=== PATIENT | male | born 1960 | race African-American/Black ===

== ENCOUNTER 2018-11-19 12:43 | Emergency (ER) | payer OTHER ==
[~2018-11-19] VITALS: Ht 190.5 cm; Wt 74.8 kg
[~2018-11-19 12:43] MED LIST: FUROSEMIDE20 M1 ORAL
--- NOTE | 2018-11-19 13:15 | NUR ---
ED Nurse Note: pt brought in by [facility] from home c/c chest pain x 4 days, pt states he hasn't been able to take his medication because he couldn't get it refilled. denies n/v/d. noted pt increase work of breathing, tachypnea, LS=rhonchi at the bases. 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
--- NOTE | 2018-11-19 13:20 | NUR ---
ED Nurse Note: called lab for blood draw.
[2018-11-19 13:26] VITALS: BP 131/96
--- NOTE | 2018-11-19 13:33 | NUR ---
ED Nurse Note: lab at the bedside for blood draw.
--- NOTE | 2018-11-19 14:03 | NUR ---
ED Nurse Note: Right 20g midline inserted by tech, secured with dressing, pt tolerated well. site intact and patent.
[2018-11-19 14:17] LABS: BASOPHILS % (AUTO) 1.2 % (0.0-2.0); EOSINOPHILS % (AUTO) 4.1 % (0.0-3.0); HEMATOCRIT 38.4 % (42.0-52.0); HEMOGLOBIN 12.1 G/DL (14.2-18.0); LYMPHOCYTES % (AUTO) 21.9 % (20.0-45.0); MEAN CORPUSCULAR VOLUME 91 FL (80-99); MONOCYTES % (AUTO) 9.9 % (1.0-10.0); NEUTROPHILS % (AUTO) 62.9 % (45.0-75.0); PLATELET COUNT 129 K/UL (150-450); RED BLOOD COUNT 4.22 M/UL (4.70-6.10); RED CELL DISTRIBUTION WIDTH 15.2 % (11.6-14.8); WHITE BLOOD COUNT 5.1 K/UL (4.8-10.8)
[2018-11-19 14:26] VITALS: BP 140/105
[2018-11-19 14:26] LABS: ANION GAP 12 mmol/L (5-15); BLOOD UREA NITROGEN 30 mg/dL (7-18); CALCIUM 9.1 MG/DL (8.5-10.1); CARBON DIOXIDE 20 MMOL/L (21-32); CHLORIDE 109 MMOL/L (98-107); CREATININE 1.4 MG/DL (0.55-1.30); POTASSIUM 3.7 MMOL/L (3.5-5.1); SODIUM 140 MMOL/L (136-145)
[2018-11-19] MEDS ORDERED: ASPIRIN-LOW81 MG ORAL (14:35)
[2018-11-19] MEDS ORDERED: NAPROXEN250 M1 PO (14:35)
[2018-11-19] MEDS ORDERED: COREG6.25 MG ORAL (14:35)
[2018-11-19] MEDS ORDERED: ATORVASTATIN CA20 MG ORAL (14:35)
[2018-11-19] MEDS ORDERED: LISINOPRIL5 MG ORAL (14:35)
[2018-11-19] MEDS ORDERED: FUROSEMIDE40 MG ORAL (14:35)
[2018-11-19 14:41] LABS: ALANINE AMINOTRANSFERASE 38 U/L (12-78); ALBUMIN 3.9 G/DL (3.4-5.0); ALBUMIN/GLOBULIN RATIO 0.7 (1.0-2.7); ALKALINE PHOSPHATASE 121 U/L (46-116); ASPARTATE AMINO TRANSFERASE 73 U/L (15-37); BILIRUBIN,TOTAL 1.5 MG/DL (0.2-1.0); CREATINE KINASE 263 U/L (26-308)
[2018-11-19 14:42] LABS: BILIRUBIN,DIRECT 0.6 MG/DL (0.0-0.3)
--- NOTE | 2018-11-19 15:00 | NUR ---
ED Nurse Note: pt resting at this time, vss, nsr on plant protection guard, extra warm blanket provided for comfort, will cont monitor.
--- NOTE | 2018-11-19 15:01 | Emergency Room Report ---
History of Present Illness General Chief Complaint: Chest Pain Source: EMS (Sedrick Barrientos MD) Present Illness HPI 58-year-old male presents ED for evaluation. Brought in by EMS. Complaining of chest pain and shortness of breath. Started today. Pain is midsternal, sharp, 8 out of 10, nonradiating. Comes and goes. Denies chest pain at this time. States he does feel short of breath. History of CHF. Took his Lasix today but did not help. Denies alcohol or drug use. No other aggravating relieving factors. Denies any other associated symptoms (Sedrick Barrientos MD) Allergies: Coded Allergies: No Known Allergies (Unverified , 11/19/18) Patient History Past Medical History: HTN, CHF, seizures Past Surgical History: none Pertinent Family History: none Social History: Denies: smoking, alcohol use, drug use Immunizations: UTD Reviewed Nursing Documentation: PMH: Agreed; PSxH: Agreed (Sedrick Barrientos MD) Nursing Documentation-PMH Hx Cardiac Problems: Yes Hx Hypertension: Yes Hx Seizures: Yes (Sedrick Barrientos MD) Review of Systems All Other Systems: negative except mentioned in HPI (Sedrick Barrientos MD) Physical Exam Vital Signs Date Time Temp Pulse Resp B/P (MAP) Pulse Ox O2 Delivery O2 Flow Rate FiO2 11/19/18 12:37 98.8 87 18 131/96 (108) 99 Room Air Sp02 EP Interpretation: reviewed, normal General Appearance: no apparent distress, alert, GCS 15, non-toxic Head: normocephalic, atraumatic Eyes: bilateral eye normal inspection, bilateral eye PERRL ENT: hearing grossly normal, normal pharynx, no angioedema, normal voice Neck: full range of motion, supple/symm/no masses Respiratory: chest non-tender, normal breath sounds, crackles, speaking full sentences Cardiovascular #1: regular rate, rhythm, no edema Cardiovascular #2: 2+ carotid (R), 2+ carotid (L), 2+ radial (R), 2+ radial (L) , 2+ dorsalis pedis (R), 2+ dorsalis pedis (L) Gastrointestinal: normal bowel sounds, non tender, soft, non-distended, no guarding, no rebound Rectal: deferred Genitourinary: normal inspection, no CVA tenderness Musculoskeletal: back normal, gait/station normal, normal range of motion, non- tender Neurologic: alert, oriented x3, responsive, motor strength/tone normal, sensory intact, speech normal Psychiatric: judgement/insight normal, memory normal, mood/affect normal, no suicidal/homicidal ideation Reflexes: 3+ bicep (R), 3+ bicep (L), 3+ tricep (R), 3+ tricep (L), 3+ knee (R) , 3+ knee (L) Lymphatic: no adenopathy (Sedrick Barrientos MD) Medical Decision Making Diagnostic Impression: Primary Impression: CHF exacerbation Additional Impression: Chest pain Labs Test 11/19/18 13:35 White Blood Count 5.1 K/UL (4.8-10.8) Red Blood Count 4.22 M/UL (4.70-6.10) Hemoglobin 12.1 G/DL (14.2-18.0) Hematocrit 38.4 % (42.0-52.0) Mean Corpuscular Volume 91 FL (80-99) Mean Corpuscular Hemoglobin 28.6 PG (27.0-31.0) Mean Corpuscular Hemoglobin Concent 31.5 G/DL (32.0-36.0) Red Cell Distribution Width 15.2 % (11.6-14.8) Platelet Count 129 K/UL (150-450) Mean Platelet Volume 7.0 FL (6.5-10.1) Neutrophils (%) (Auto) 62.9 % (45.0-75.0) Lymphocytes (%) (Auto) 21.9 % (20.0-45.0) Monocytes (%) (Auto) 9.9 % (1.0-10.0) Eosinophils (%) (Auto) 4.1 % (0.0-3.0) Basophils (%) (Auto) 1.2 % (0.0-2.0) Sodium Level 140 MMOL/L (136-145) Potassium Level 3.7 MMOL/L (3.5-5.1) Chloride Level 109 MMOL/L (98-107) Carbon Dioxide Level 20 MMOL/L (21-32) Anion Gap 12 mmol/L (5-15) Blood Urea Nitrogen 30 mg/dL (7-18) Creatinine 1.4 MG/DL (0.55-1.30) Estimat Glomerular Filtration Rate > 60 mL/min (>60) Glucose Level 88 MG/DL (74-106) Calcium Level 9.1 MG/DL (8.5-10.1) Total Bilirubin 1.5 MG/DL (0.2-1.0) Direct Bilirubin 0.6 MG/DL (0.0-0.3) Aspartate Amino Transf (AST/SGOT) 73 U/L (15-37) Alanine Aminotransferase (ALT/SGPT) 38 U/L (12-78) Alkaline Phosphatase 121 U/L (46-116) Total Creatine Kinase 263 U/L (26-308) Creatine Kinase MB 5.0 NG/ML (0.0-3.6) Creatine Kinase MB Relative Index 1.9 Troponin I 0.038 ng/mL (0.000-0.056) Pro-B-Type Natriuretic Peptide 2061 pg/mL (0-125) Total Protein 9.7 G/DL (6.4-8.2) Albumin 3.9 G/DL (3.4-5.0) Globulin 5.8 g/dL Albumin/Globulin Ratio 0.7 (1.0-2.7) (Sedrick Barrientos MD) ER Course Patient presented to Dr. Layton who accepts the patient. (Rubin Pradhan MD) EKG Diagnostic Results Rate: normal Rhythm: NSR ST Segments: other - twave inversions in lateral leads ASA given to the pt in ED: Yes (Sedrick Barrientos MD) Rhythm Strip Diag. Results EP Interpretation: yes Rhythm: NSR, no PVC's, no ectopy (Sedrick Barrientos MD) Chest X-Ray Diagnostic Results Chest X-Ray Diagnostic Results : Chest X-Ray Ordered: Yes # of Views/Limited/Complete: 1 View Indication: Chest Pain EP Interpretation: Yes Interpretation: no consolidation, no effusion, other - cardiomegaly Impression: Other - chf Electronically Signed by: Electronically signed by Sedrick Barrientos MD (Sedrick Barreintos MD) Last Vital Signs Date Time Temp Pulse Resp B/P (MAP) Pulse Ox O2 Delivery O2 Flow Rate FiO2 11/19/18 13:26 88 18 Room Air 11/19/18 13:26 98.8 131/96 94 Status: improved (Sedrick Barrientos MD) Disposition: XFER SHT-TRM HOSP Condition: Serious - but stable Referrals: PELON MCKEON (PCP) Sedrick Barrientos MD Nov 19, 2018 15:01 Rubin Pradhan MD Nov 19, 2018 15:44
--- NOTE | 2018-11-19 15:08 | Diagnostic Imaging Report ---
Indication: Shortness of breath Technique: One view of the chest Comparison: none Findings: Heart is enlarged. The lungs and pleural spaces are clear. Impression: Cardiomegaly. No acute process
[2018-11-19 17:15] VITALS: BP 169/91
[2018-11-19] MEDS ORDERED: Morphine Sulfate 4mg/ml Inj (IV USE ONLY) IVP ONE (17:15)
[2018-11-19 17:18] VITALS: BP 140/105
--- NOTE | 2018-11-19 17:18 | NUR ---
ED Nurse Note: TELEPHONE REPORT GIVEN TO CLEO LI
--- NOTE | 2018-11-19 17:18 | NUR ---
ED Nurse Note: ambulance at the bedside, care endorsed to ambulance personnel.
--- NOTE | 2018-11-19 17:25 | NUR ---
ED Nurse Note: noted pt's shoes at the bedside, ambulance notified regarding pt's belonging left behind, ambulance stated they will come back and pick it up.
--- NOTE | 2018-11-20 13:11 | Cardiology Report ---
APPROVED REPORT EKG Measurement Heart [id number] Normal sinus rhythm Possible Left atrial enlargement Left ventricular hypertrophy T wave abnormality, consider lateral ischemia Prolonged QT Abnormal ECG
== END 2018-11-19 17:18 | disposition short-term general hospital (02) ==
LOC: EDBD 12:43 → EMR 13:31
DX: I50.9 Heart failure, unspecified (principal); R07.9 Chest pain, unspecified; I11.0 Hypertensive heart disease with heart failure; G40.909 Epilepsy, unspecified, not intractable, without status epilepticus
CPT/HCPCS: 36415; 71045; 80053; 82248; 82550; 82553; 83880; 84484; 85025; 93005; 96374; 96375; 99284; J1940; J2270; J2405